=== PATIENT | male | born 1980 | race Caucasian/White ===

== ENCOUNTER 2017-01-10 09:57 | Emergency (ER) ==
[2017-01-10 10:05] VITALS: BP 125/63
[2017-01-10] MEDS ORDERED: DUONEB (A & A) INH ONE (10:12)
[2017-01-10] MEDS ORDERED: DECADRON IM ONE (10:12)
[2017-01-10] MEDS ORDERED: BICILLIN L-A IM ONE (10:27)
[2017-01-10] MEDS ORDERED: TYLENOL PO ONE (10:28)
--- NOTE | 2017-01-10 10:28 | PROVIDER DOCUMENTATION ---
[facility] <Fred Herbert - Last Filed: 01/10/17 10:27> - General Source: patient - History of Present Illness-[facility] Location: reports: throat Quality of Pain: reports: aching Severity: reports: mild Onset/Duration: reports: 2 days ago Timing: reports: still present, intermittent Prearrival Treatment: Initiated no prearrival treatment Associated Symptoms: reports: fever, sore throat. denies: change in hearing, cough, drooling, ear drainage, facial pain/swelling, malaise, nasal congestion/ drainage, poor fluid intake, poor solids intake, sinus infection, tooth pain, voice change Locality of Occurance: Home Similar Symptoms Previously?: Yes Recently seen or treated by another doctor?: No - Throat/Dental Throat/Dental Problem Symptoms: reports: sore throat Throat/Dental Problem Context: denies: recent dental extractions, fractured tooth Recently seen a dentist or have an appointment?: No <Bailey Hitchcock - Last Filed: 01/10/17 10:32> - General Chief Complaint: Cold Symptoms Stated Complaint: SORE THROAT, CONGESTION Time Seen by Provider: 01/10/17 10:03 Allergies/Adverse Reactions: Patient Allergies Allergy/AdvReac Type Severity Reaction Status Date / Time No Known Allergies Allergy Verified 01/10/17 10:05 Home Medications: Home Medication List Medication Instructions Recorded Confirmed Last Taken Type Diphenhyramine/Al&mg Oh/Lido [Mbx 15 ml MT Q4-6H PRN PRN #1 bottle 01/10/17 Unknown Rx Solution] Ibuprofen [Motrin] 800 mg PO Q8H PRN PRN #20 tablet 01/10/17 Unknown Rx - History of Present Illness-[facility] General Nature of Presenting Problem: Pt is 36 y/o M presents to the ED with F, chills, and sore throat. Pt states symptoms have been present for two days. Pt denies cough. (Bailey Hitchcock) Review of Systems - Adult - REVIEW OF SYSTEMS - ADULT Constitutional: reports: chills, fever Eyes: reports: no symptoms reported Ears, Nose, Mouth & Throat: reports: throat pain. denies: ear pain, nose pain Cardiovascular: reports: irregular heart rate (tachy). denies: chest pain, heart murmur Respiratory: reports: no symptoms reported Gastrointestinal: reports: no symptoms reported Genitourinary: reports: no symptoms reported Musculoskeletal: reports: no symptoms reported Integumentary: reports: no symptoms reported Neurological: reports: no symptoms reported Psychiatric: reports: no symptoms reported Endocrine: reports: no symptoms reported Hematologic/Lymphatic: reports: no symptoms reported Allergic/Immunologic: reports: no symptoms reported All Other Systems: Reviewed and Negative <Bailey Hitchcock - Last Filed: 01/10/17 10:32> Past History - Adult - PAST MEDICAL HISTORY-ADULT Major Childhood Illnesses: reports: denies history Cardiovascular: reports: denies history Respiratory: reports: denies history Gastrointestinal: reports: denies history Obstetrical/Gynecological: reports: denies history Genitourinary: reports: denies history Musculoskeletal: reports: denies history Neurological: reports: denies history Endocrine/Immune: reports: denies history Other Conditions: reports: denies history - PRIOR SURGERIES/PROCEDURES Surgical/Procedure History: reports: none - PRIOR HOSPITALIZATIONS Prior Hospitalizations: reports: none - IMMUNIZATION STATUS Childhood Immunizations: See Nurse Assessment Flu Vaccine: See Nurse Assessment - FAMILY HISTORY Family History: reviewed, not pertinent <Fred Herbert - Last Filed: 01/10/17 10:27> - PAST MEDICAL HISTORY-ADULT Review of Records: reports: Nursing Assessment Review, Medications Reviewed, Social history reviewed & non-contributory. Major Childhood Illnesses: reports: denies history Cardiovascular: reports: denies history Respiratory: reports: denies history Gastrointestinal: reports: denies history Obstetrical/Gynecological: reports: denies history Genitourinary: reports: denies history Musculoskeletal: reports: denies history Neurological: reports: denies history Endocrine/Immune: reports: denies history Other Conditions: reports: denies history - PRIOR SURGERIES/PROCEDURES Surgical/Procedure History: reports: none - IMMUNIZATION STATUS Childhood Immunizations: See Nurse Assessment Flu Vaccine: See Nurse Assessment - FAMILY HISTORY Family History: reviewed, not pertinent - SOCIAL HISTORY Smoking: cigarettes, less than 1 pack/day Provider spent 3-5 mins advising pt. on dangers of tobacco.: discussed smoking cessation Substance Use: denies Living Situation: family <Bailey Hitchcock - Last Filed: 01/10/17 10:32> Physical Exam- EENT - Physical Exam EENT Initial Vital Signs Reviewed: Yes General Appearance: appears well, alert, no apparent distress Eye Exam: bilateral eye: normal inspection, PERRL, EOMI Ear Exam: bilateral ear: auricle normal, canal normal, TM normal Nasal Exam: normal inspection Throat Exam: tonsillar exudate, tonsillar swelling, other (tonsillar redness) Neck: non-tender, full range of motion, supple, normal inspection Respiratory: chest non-tender, lungs clear, normal breath sounds, no pleuratic chest pain, no respiratory distress, no accessory muscle use Cardiovascular: normal peripheral pulses, no edema, no gallop, no JVD, no murmur , tachycardia Abdominal Exam: normal bowel sounds, non tender, soft, no organomegaly, no pulsatile mass Lymphatic: no adenopathy Back Exam: normal inspection, no CVA tenderness, no vertebral tenderness Extremity: normal range of motion, non-tender, normal gait, normal inspection, no pedal edema, no calf tenderness, normal capillary refill Integumentary: normal color, normal turgor, warm/dry Neurologic: grossly normal Psych/Mental Status: normal mood/affect, oriented x 3 <Bailey Hitchcock - Last Filed: 01/10/17 10:32> Progress <Fred Herbert - Last Filed: 01/10/17 10:27> <Bailey Hitchcock - Last Filed: 01/10/17 10:32> - PLAN OF CARE/RESULTS Progress/Plan/Lab Results: Laboratory Tests 01/10/17 01/10/17 10:08 10:08 Influenza A (Rapid) NEGATIVE Influenza B (Rapid) NEGATIVE Group A Strep Rapid POSITIVE A Orders Category Date Time Status DIRECT STREP PL Stat Lab 01/10/17 10:[address] Stat Lab 01/10/17 10:08 Completed Acetaminophen [Tylenol] Med 01/10/17 10:28 Discontinued 1,000 mg PO NOW ONE Albuterol 2.5MG/Ipratrop 0.5MG [Duoneb (A & A)] Med 01/10/17 10:12 Discontinued 3 ml INH NOW ONE Dexamethasone [Decadron] Med 01/10/17 10:12 Discontinued 10 mg IM NOW ONE Penicillin G Benzathine [Bicillin l-A] Med 01/10/17 10:27 Discontinued 1,200,000 unit IM NOW ONE Aerosol Treatments Routine Oth 01/10/17 10:12 Active Aerosol Treatments Stat Oth 01/10/17 10:12 Active Vital Signs - 24 hr 01/10/17 01/10/17 10:02 10:15 Temperature 100.5 F H Pulse Rate 101 H 82 Respiratory 18 18 Rate Blood Pressure 125/63 O2 Sat by Pulse 100 98 Oximetry (Bailey Hitchcock) Departure - Departure Time of Disposition Order: 10:27 Certified Medical Emergency: Urgent <Fred Herbert - Last Filed: 01/10/17 10:27> - Departure Time of Disposition Order: 10:32 Certified Medical Emergency: Emergent <Bailey Hitchcock - Last Filed: 01/10/17 10:32> - Departure DIAGNOSIS: Strep sore throat Disposition: HOME 01 Condition: Good Additional Instructions: Take medication as prescribed. Rest and stay well hydrated. ED Follow Up Instructions: You have been treated by a care provider in the Emergency Department. These instructions are being provided to you so you can have an understanding of how to care for yourself upon discharge. Upon discharge from the Emergency Department, you are responsible for making arrangements for follow-up care by a physician of your choice. Take all prescribed medications as directed. Return to the Emergency Department immediately for any new or worsening symptoms. You may call the Physician Referral phone number at [phone] to obtain a list of Physicians who are taking new patients. Prescriptions: Diphenhyramine/Al&mg Oh/Lido [Mbx Solution] 15 ml MT Q4-6H PRN PRN #1 bottle PRN Reason: Sore throat Ibuprofen [Motrin] 800 mg PO Q8H PRN PRN #20 tablet PRN Reason: inflammation Referrals: None,PCP [Primary Care Provider] - Attestation - Physician/ GRNAT Attestation Patient care was provided by Advanced Practice Provider:: Yes Advanced Practice Provider:: Fred Herbert Advanced Practice Provider documentation review:: The Mid-level provider documentation, treatment plan and medical decision making was reviewed by the physician who agrees with all treatment and medical decision making by the [facility]. <Fred Herbert - Last Filed: 01/10/17 10:27> - Scribe Verification/Attestation Scribe:: Bailey Hitchcock Acting as Scribe for:: Fred Herbert Scribe documention review:: This chart was documented by a scribe and accurately reflects the service the provider performed and the decisions made by the provider. <Bailey Hitchcock - Last Filed: 01/10/17 10:32> Physician Attestation
== END 2017-01-10 11:07 | disposition home or self-care (01) ==
LOC: P.ED 09:57
DX: J02.0 Streptococcal pharyngitis (principal); R50.9 Fever, unspecified; R00.0 Tachycardia, unspecified; F17.210 Nicotine dependence, cigarettes, uncomplicated; Z71.6 Tobacco abuse counseling
CPT/HCPCS: 87430; 87804; 94640; 96372; J0561